=== PATIENT | male | born 1990 | race Two or more races ===

== ENCOUNTER → 2019-11-06 | Emergency (ER) | payer SELFPAY ==
[~2019-11-06] VITALS: Ht 167.6 cm; Wt 68.0 kg
[2019-11-06 22:13] LABS: Basophils # (auto) 0.1 10 ^3/uL (0-0.2); Basophils % (auto) 0.4 % (0.0-2.0); Eosinophils # (auto) 0 10 ^3/uL (0-0.8); Hematocrit 45.7 % (41.0-53.0); Hemoglobin 16.1 g/dL (13.5-17.5); Lymphocytes # (auto) 2.3 10 ^3/uL (0.4-5.4); Lymphocytes % (auto) 12.1 % (10.0-50.0); Mean Corpuscular Hemoglobin 29.7 pg (28.0-32.0); Mean Corpuscular Hgb Conc. 35.2 g/dL (32.0-36.0); Mean Corpuscular Volume 84.2 fL (80.0-100.0); Neutrophils # (auto) 15.8 10 ^3/uL (1.6-8.6); Neutrophils % (auto) 82.5 % (37.0-80.0); Nucleated Red Blood Cells % 0.1 %; Platelet Count (auto) 324 10^3/uL (140-450); Red Blood Cells 5.42 10^6/uL (4.5-5.90); White Blood Cell 19.2 10^3/uL (4.4-10.8)
[2019-11-06 22:18] LABS: Chloride 106 mmol/L (98-107); Potassium 3.2 mmol/L (3.5-5.1); Sodium 139 mmol/L (136-145)
[2019-11-06 22:25] LABS: Alanine Aminotransferase 33 U/L (16-61); Albumin 4.5 g/dL (3.4-5.0); Alkaline Phosphatase 87 U/L (45-117); Anion Gap 11 (5-15); Aspartate Aminotransferase 48 U/L (15-37); BUN/Creatinine Ratio 26.1; Blood Alcohol < 3.0 mg/dL (0-5); Blood Urea Nitrogen 29 mg/dL (7-18); Calcium 9.8 mg/dL (8.5-10.1); Carbon Dioxide 22 mmol/L (21-32); GFR African American 100 mL/min; GFR Non-African American 83 mL/min; Glucose 91 mg/dL (74-106); Total Protein 9.4 g/dL (6.4-8.2)
[2019-11-07 02:34] LABS: Urine Bacteria FEW /hpf (None Seen); Urine Blood Negative /uL (Negative); Urine Hyaline Cast MOD /lpf (0 - 2); Urine Mucus FEW (None Seen); Urine Specific Gravity 1.036 (1.001-1.035); Urine Sperm PRESENT /hpf (None Seen); Urine WBC 3 /hpf (0 - 3)
[2019-11-07 02:49] LABS: Alcohol, Urine < 3.0 mg/dL (0-5); Amphetamine Screen, Urine POSITIVE (NEGATIVE); Barbiturate Scree,Urine NEGATIVE (NEGATIVE); Benzodiazephine Screen, Urine NEGATIVE (NEGATIVE); Cannabinoid Screen, Urine NEGATIVE (NEGATIVE); Cocaine Screen, Urine NEGATIVE (NEGATIVE); Phencyclidine Screen, Urine NEGATIVE (NEGATIVE)
[2019-11-07 02:56] LABS: Opiate Scree,Urine NEGATIVE (NEGATIVE)
[2019-11-07 05:13] VITALS: BP 118/73
== END | disposition home or self-care (01) ==
LOC: EDBD 18:21 → ER 18:21
DX: F10.920 Alcohol use, unspecified with intoxication, uncomplicated (principal); R45.1 Restlessness and agitation; F15.10 Other stimulant abuse, uncomplicated; F17.210 Nicotine dependence, cigarettes, uncomplicated
CPT/HCPCS: 36415; 80053; 80307; 80320; 81001; 85025; A4565

== ENCOUNTER 2019-11-25 23:09 | Emergency (ER) | payer OTHER ==
[~2019-11-25] VITALS: Ht 177.8 cm; Wt 68.0 kg
[2019-11-26 02:00] LABS: Basophils # (auto) 0.1 10 ^3/uL (0-0.2); Basophils % (auto) 0.8 % (0.0-2.0); Eosinophils # (auto) 0.1 10 ^3/uL (0-0.8); Eosinophils % (auto) 1.1 % (0.0-7.0); Hematocrit 44.5 % (41.0-53.0); Hemoglobin 15.4 g/dL (13.5-17.5); Lymphocytes # (auto) 3.3 10 ^3/uL (0.4-5.4); Lymphocytes % (auto) 38.5 % (10.0-50.0); Mean Corpuscular Hemoglobin 29.2 pg (28.0-32.0); Mean Corpuscular Hgb Conc. 34.6 g/dL (32.0-36.0); Mean Corpuscular Volume 84.2 fL (80.0-100.0); Monocytes # (auto) 0.5 10 ^3/uL (0-1.3); Monocytes % (auto) 5.8 % (0.0-12.0); Neutrophils # (auto) 4.6 10 ^3/uL (1.6-8.6); Neutrophils % (auto) 53.8 % (37.0-80.0); Platelet Count (auto) 317 10^3/uL (140-450); Red Blood Cells 5.29 10^6/uL (4.5-5.90); Red Cell Distribution Width 13.2 % (11.8-14.3); White Blood Cell 8.5 10^3/uL (4.4-10.8)
[2019-11-26 02:14] LABS: Albumin 3.7 g/dL (3.4-5.0); Calcium 9.1 mg/dL (8.5-10.1); Potassium 3.6 mmol/L (3.5-5.1); Salicylate 2.4 mg/dL (2.8-20.0)
[2019-11-26 02:17] LABS: Bilirubin, Total 0.5 mg/dL (0.2-1.0); Total Protein 8.2 g/dL (6.4-8.2)
[2019-11-26 02:23] LABS: Acetaminophen < 2.0 ug/mL (10-30)
[2019-11-26 03:09] LABS: Urine Bacteria NONE SEEN /hpf (None Seen); Urine Blood Negative /uL (Negative); Urine Mucus MANY (None Seen); Urine Specific Gravity 1.035 (1.001-1.035); Urine WBC 1 /hpf (0 - 3)
[2019-11-26 03:23] LABS: Alcohol, Urine < 3.0 mg/dL (0-5); Amphetamine Screen, Urine NEGATIVE (NEGATIVE); Barbiturate Scree,Urine NEGATIVE (NEGATIVE); Benzodiazephine Screen, Urine NEGATIVE (NEGATIVE); Cannabinoid Screen, Urine NEGATIVE (NEGATIVE); Cocaine Screen, Urine NEGATIVE (NEGATIVE); Opiate Scree,Urine NEGATIVE (NEGATIVE); Phencyclidine Screen, Urine NEGATIVE (NEGATIVE)
[2019-11-26] MEDS ORDERED: OLANZapine 5 MG TAB PO ONE (08:00)
[2019-11-27] MEDS ORDERED: LORazepam 0.5 MG TAB PO ONE (05:45)
[2019-11-27] MEDS ORDERED: LORazepam 2MG/ML-1ML VIAL ONE (05:59)
[2019-11-27] MEDS ORDERED: HALOPERIDOL LACTATE 5 MG/ML INJ VIAL ONE (05:59)
[2019-11-27] MEDS ORDERED: diphenhdrAMINE HCL 50 MG/1 ML VL ONE (05:59)
[2019-11-27] MEDS ORDERED: diphenhdrAMINE HCL 50 MG/1 ML VL IM ONE (06:00)
[2019-11-27] MEDS ORDERED: HALOPERIDOL LACTATE 5 MG/ML INJ VIAL IM ONE (06:00)
[2019-11-27] MEDS ORDERED: LORazepam 2MG/ML-1ML VIAL IM ONE (06:00)
[2019-11-28] MEDS ORDERED: LORazepam 2MG/ML-1ML VIAL IM ONE ×2 (01:45→19:45)
[2019-11-28] MEDS ORDERED: diphenhdrAMINE HCL 50 MG/1 ML VL IM ONE ×2 (01:45→19:45)
[2019-11-28] MEDS ORDERED: HALOPERIDOL LACTATE 5 MG/ML INJ VIAL IM ONE ×2 (01:45→19:45)
[2019-11-29] MEDS ORDERED: HALOPERIDOL LACTATE 5 MG/ML INJ VIAL IM ONE (21:00)
[2019-11-29] MEDS ORDERED: LORazepam 2MG/ML-1ML VIAL IM ONE (21:00)
[2019-11-29] MEDS ORDERED: diphenhdrAMINE HCL 50 MG/1 ML VL IM ONE (21:00)
[2019-11-30] MEDS ORDERED: LORazepam 2MG/ML-1ML VIAL IM ONE (20:15)
[2019-11-30] MEDS ORDERED: diphenhdrAMINE HCL 50 MG/1 ML VL IM ONE (20:15)
[2019-11-30] MEDS ORDERED: HALOPERIDOL LACTATE 5 MG/ML INJ VIAL IM ONE (20:15)
[2019-12-01] MEDS ORDERED: LORazepam 2MG/ML-1ML VIAL IM ONE (20:00)
[2019-12-01] MEDS ORDERED: HALOPERIDOL LACTATE 5 MG/ML INJ VIAL IM ONE (20:00)
[2019-12-01] MEDS ORDERED: diphenhdrAMINE HCL 50 MG/1 ML VL IM ONE (20:00)
[2019-12-02] MEDS ORDERED: HALOPERIDOL LACTATE 5 MG/ML INJ VIAL IM ONE (22:00)
[2019-12-02] MEDS ORDERED: LORazepam 2MG/ML-1ML VIAL IM ONE (22:00)
[2019-12-02] MEDS ORDERED: diphenhdrAMINE HCL 50 MG/1 ML VL IM ONE (22:00)
[2019-12-03 09:14] VITALS: BP 98/63
== END 2019-12-03 11:17 | disposition home or self-care (01) ==
LOC: EDBD 23:09 → ER 23:09 → EDUNIT# 23:09 → ER 12-03 11:17
DX: S00.81XA Abrasion of other part of head, initial encounter (principal); F20.9 Schizophrenia, unspecified; F31.9 Bipolar disorder, unspecified; F17.210 Nicotine dependence, cigarettes, uncomplicated; F15.10 Other stimulant abuse, uncomplicated; X58.XXXA Exposure to other specified factors, initial encounter; Y93.89 Activity, other specified; Y92.89 Other specified places as the place of occurrence of the external cause; Y99.8 Other external cause status
CPT/HCPCS: 36415; 70450; 71046; 80053; 80307; 80329; 81001; 85025; 96372

== ENCOUNTER 2019-12-03 22:35 | Emergency (ER) | payer OTHER ==
[~2019-12-03] VITALS: Ht 170.2 cm; Wt 72.6 kg
[2019-12-03] MEDS ORDERED: diphenhdrAMINE HCL 50 MG/1 ML VL IV ONE (23:00)
[2019-12-03] MEDS ORDERED: LORazepam 2MG/ML-1ML VIAL IM ONE (23:00)
[2019-12-03] MEDS ORDERED: HALOPERIDOL LACTATE 5 MG/ML INJ VIAL IM ONE (23:00)
[2019-12-04 00:53] VITALS: BP 90/54
== END 2019-12-04 07:30 | disposition home or self-care (01) ==
LOC: EDBD 22:35 → ER 22:35
DX: F20.9 Schizophrenia, unspecified (principal); R45.1 Restlessness and agitation; F17.210 Nicotine dependence, cigarettes, uncomplicated; F15.10 Other stimulant abuse, uncomplicated
CPT/HCPCS: 36415; 80320; 96372; 96374; 99284; J1200; J1630; J2060; J7030

== ENCOUNTER 2020-02-03 10:52 | Emergency (ER) | payer MEDICAID, OTHER ==
[~2020-02-03] VITALS: Ht 172.7 cm; Wt 72.6 kg
[2020-02-03 10:56] VITALS: BP 148/72
[2020-02-03] MEDS ORDERED: OLANZapine 5 MG TAB PO ONE (11:30)
== END 2020-02-03 11:38 | disposition home or self-care (01) ==
LOC: EDUNIT# 10:52 → ER 10:52 → EDBD 10:52 → ER 11:38
DX: F31.9 Bipolar disorder, unspecified (principal); F20.9 Schizophrenia, unspecified; F17.210 Nicotine dependence, cigarettes, uncomplicated; F15.10 Other stimulant abuse, uncomplicated; Z76.0 Encounter for issue of repeat prescription